=== PATIENT | female | born 2000 | race Caucasian/White ===

== ENCOUNTER 2022-09-15 14:48 | Outpatient (CLI) | payer OTHER, SELFPAY ==
[2022-09-15 17:21] LABS: Cholesterol* 148 mg/dL (90-199); HDL Cholesterol* 57 mg/dL (>=50); LDL Cholesterol Calculated 72 mg/dL (<100); Triglycerides* 97 mg/dL (40-149)
[2022-09-17 11:32] LABS: Estradiol Premenol Female <20 pg/mL
[2022-09-22 15:49] LABS: Sex Hormone Binding Globulin 17 nmol/L (25-122); Testosterone, Free LC-MS/MS 3.6 pg/mL (0.8-7.4); Testosterone, LC-MS/MS 16 ng/dL (9-55)
== END 2022-09-15 14:49 | disposition home or self-care (01) ==
PROVIDERS: Visit Provider Obstetrics & Gynecology
DX: Z79.899 Other long term (current) drug therapy (principal); F64.9 Gender identity disorder, unspecified
CPT/HCPCS: 80061; 82670; 84270; 84402; 84403

== ENCOUNTER 2023-01-05 14:52 | Outpatient (CLI) | payer OTHER, SELFPAY ==
[2023-01-07 22:15] LABS: Testosterone, Adult Male 559 ng/dL
== END 2023-01-05 14:53 | disposition home or self-care (01) ==
LOC: NFLDREF 14:53
PROVIDERS: Visit Provider Obstetrics & Gynecology
DX: Z79.899 Other long term (current) drug therapy (principal)
CPT/HCPCS: 84403